=== PATIENT | male | born 2000 | race Caucasian/White ===

== ENCOUNTER 2023-11-27 18:33 | Emergency (ER) | payer MEDICAID, SELFPAY ==
[2023-11-27 18:34] VITALS: BP 151/86; PULSE 105; RESP 16; TEMP 36.4; O2SAT 100; BMI 21.7
--- NOTE | 2023-11-27 18:49 | CT_ITS ---
STUDY: CT ABDOMEN AND PELVIS WITH CONTRAST REASON FOR EXAM: Male, 23 years old. LLQ Pain RADIATION DOSAGE (If Supplied By Facility): CTDIvol = ( 9.88 ) mGy, DLP = ( 520.76 ) mGycm TECHNIQUE: Transaxial images were obtained from the dome of the diaphragm to the symphysis pubis without oral contrast. IV 100mL Isovue-370 was administered. Sagittal and coronal images were reconstructed. Individualized dose optimization techniques were used for this CT. COMPARISON: None. FINDINGS: The visualized lung bases are unremarkable. The visualized portions of the heart are within normal limits. Normal liver. Normal gallbladder and extrahepatic biliary system. Normal spleen. Normal pancreas. Normal bilateral adrenal glands. Normal right kidney. Normal left kidney. Normal visualized stomach. Normal small intestine. Borderline mild thickening of the wall through the descending and sigmoid colon, cannot exclude mild colitis. The appendix measures 6.5 mm with no focal inflammatory process seen. Normal abdominal aorta. Normal inferior vena cava. Normal retroperitoneum. Normal urinary bladder. Normal abdominal wall. Normal osseous structures. CT/Abdomen/Pelvis W IV Cont ONLY IMPRESSION: Cannot exclude mild colitis. No acute appendicitis or bowel obstruction. Normal abdominal viscera. Electronically Signed: Alessia De Los Santos MD at 19:53 EST ,
--- NOTE | 2023-11-27 18:49 | EX.ED.DYSGE1 ---
HPI History of Present Illness Chief Complaint: Abd Pain Informant: patient and family Narrative Narrative: 23-year-old male presenting to the emergency room with 24-hour history of left lower quadrant abdominal pain. Patient states that he had multiple stools today which is not really abnormal for him but seem darker than normal. He noticed a little bright red blood on the toilet paper. No nausea vomiting or fever. No urinary symptoms. He states the pain throughout the pulsatile seems to spread towards the back. He denies any history of Crohn's disease ulcerative colitis. No ureterolithiasis. No known trauma. He went to urgent care and was sent to the emergency department. [facility] Medical History no medical history no medical history Home Medications amoxicillin 875 mg-potassium clavulanate 125 mg tablet 875 mg (0.875 x 875-125 mg) PO Q12H #14 TABLETS 11/27/23 [Rx Last Taken Unknown] oxycodone-acetaminophen 5 mg-325 mg tablet 1 tab PO Q6H PRN PRN Pain 3 days #12 TABLETS 11/27/23 [Rx Last Taken Unknown] Allergy/AdvReac Type Severity Reaction Status Date / Time prednisone Allergy Mild Itching Verified 11/27/23 18:36 Surgical History no surgical history no surgical history Social History Smoking Status: Never smoker ROS ROS ED Constitutional Constitutional ED: Denies chills, fever(s) or weight loss Eyes Eyes: Denies change in vision or diplopia ENT ENT ED: Denies ear pain, rhinorrhea or sore throat Cardiovascular Cardiovascular: Denies chest pain, orthopnea, palpitations or racing heartbeat Respiratory/Chest Respiratory/Chest: Denies cough, dyspnea or orthopnea Gastrointestinal Gastrointestinal: Reports abdominal pain, diarrhea and other Details: BRBPR ; Denies nausea or vomiting Genitourinary Genitourinary ED: Denies dysuria, hematuria or urinary frequency Musculoskeletal Musculoskeletal: Denies arthralgias, myalgias or neck pain Integumentary Denies abscess or rash Neurologic Neurologic: Denies headache(s) or weakness Psychiatric Psychiatric: Denies anxiety, depression, suicidal ideation or suicidal thoughts Endocrine Endocrinology: Denies polydipsia, polyphagia or polyuria Allergic/Immunologic Allergic/Immunologic ED: Denies mouth swelling, tongue swelling or urticaria EXAM Physical Exam Const Vital Signs: 11/27/23 18:34 Temperature 97.5 F L Temperature Source Temporal Pulse Rate 105 H Respiratory Rate 16 Blood Pressure 151/86 H Blood Pressure Mean 107 Pulse Ox 100 Oxygen Delivery Method Room Air Positive well nourished and well developed General Appearance ED: well developed HEENT Reports normocephalic, head/scalp atraumatic and moist mucous membranes Eyes PERRL and EOMs intact bilaterally Neck no lymphadenopathy, supple and no JVD Resp normal respiratory effort and clear to auscultation bilaterally Cardio regular rate, regular rhythm and no murmurs GI Inspection: Negative for abdominal distention Auscultation: normoactive bowel sounds Palpation: soft and tender LLQ; Negative for guarding or rebound tenderness present Back/Spine no CVA tenderness and normal ROM Extremity normal to inspection General Extremety ED: Negative for edema General Extremity: Negative for edema Neuro oriented x3 and CN's II-XII intact bilaterally Sensorium / Orientation: alert Motor Exam: strength 5/5 throughout Psych mental status grossly normal Mood & Affect: Negative for depressed or tearful Skin no rashes or lesions noted and no wounds MDM MDM MDM Narrative Medical decision making narrative: Basic blood work showed a white count 7.5 hemoglobin 16.5. CMP essentially negative. Urinalysis negative. CT abdomen pelvis demonstrates some possible thickening of the rectosigmoid colon. This would certainly be in keeping with his symptoms with some blood pain. There is someone in his family with Crohn's disease. He has never had anything like this before. I do not think adding rectal contrast tonight is going to be of great significance. I will treat him with antibiotics in the form of Augmentin and pain medication. He was advised on return symptoms. He was advised that he should establish GI coverage and would recommend a follow-up colonoscopy. He was also advised that it may be a while before he can get into see a rail project engineer. We talked about establishing primary care and possibly seeing a surgeon for the colonoscopy. He states that he will make phone calls and see about follow-up. History & Record Review Discussion w/independent historian: Patient, Family and Significant other Additional record(s) reviewed:: Prior outpatient record Lab Data Attestation: I reviewed the patient's lab results. Labs: Laboratory Results - last 24 hr 11/27/23 19:10 WBC 7.5 RBC 5.24 Hgb 16.5 Hct 45.6 MCV 87.0 MCH 31.5 MCHC 36.2 H RDW Std Deviation 38.2 RDW Coeff of Kamlesh 12.0 Plt Count 282 MPV 10.1 Immature Gran % (Auto) 0.300 Neut % (Auto) 75.8 H Lymph % (Auto) 15.6 L Schley % (Auto) 6.8 Eos % (Auto) 1.1 Baso % (Auto) 0.4 Absolute Neuts (auto) 5.7 Absolute Lymphs (auto) 1.17 Nucleated RBC % 0 Sodium 140 Potassium 3.6 Chloride 106 Carbon Dioxide 22.0 Anion Gap 12 BUN 13 Creatinine 0.94 Estim Creat Clear Calc 124.39 Est GFR (MDRD) Af Amer 126 Est GFR (MDRD) Non-Af 104 BUN/Creatinine Ratio 13.8 Glucose 101 Calcium 9.8 Total Bilirubin 0.90 AST 45 H ALT 21 Alkaline Phosphatase 54 Total Protein 8.6 H Albumin 4.9 Globulin 3.7 Albumin/Globulin Ratio 1.3 Urine Color Yellow Urine Clarity Clear Urine pH 8.0 Ur Specific [place] 1.015 Urine Protein Negative Urine Glucose (UA) Normal Urine Ketones 15 H Urine Occult Blood Negative Urine Nitrite Negative Urine Bilirubin Negative Urine Urobilinogen Normal Ur Leukocyte Esterase Negative Urine RBC 0 SEEN Urine WBC 0 SEEN Ur Squamous Epith Cells 0 SEEN Urine Bacteria 0 SEEN Urine Mucus 0 SEEN Radiography Diagnostic Testing: Clinical Impression(s) from Imaging Studies Abdomen/Pelvis CT 11/27/23 18:49 IMPRESSION: Cannot exclude mild colitis. No acute appendicitis or bowel obstruction. Normal abdominal viscera. Electronically Signed: Alessia De Los Santos MD at 19:53 EST , Discharge Plan Triage Chief Complaint: Abd Pain ED Provider: Bubba Bingham Dx/Rx/DC Orders Clinical Impression: Colitis, Abdominal pain Instructions: ED Understanding Colitis Prescriptions: New oxycodone-acetaminophen [oxycodone-acetaminophen] 5-325 mg tablet 1 tab PO Q6H PRN PRN (Reason: Pain) 3 Days Qty: 12 0RF amoxicillin-pot clavulanate [amoxicillin-pot clavulanate] 875-125 mg tablet 875 mg PO Q12H Qty: 14 0RF Primary Care Provider: Care Physician,No Primary Referrals: Friend,Leo, DO [Med Staff - Active Staff] - As soon as possible (For gastroenterology evaluation) Care Physician,No Primary [Primary Care Provider] - Disposition Disposition: Home, Self Care
[2023-11-27] MEDS: Ketorolac 30 MG/ML Syringe IV (19:13)
[2023-11-27] MEDS: 0.9% Normal Saline (1000mL) 1,000 ML 1000 ML IV (19:13)
[2023-11-27 19:16] LABS: Bacteria 0 SEEN /hpf (None Seen); Mucous, Urine 0 SEEN /hpf (<or=2+); Red Blood Cells-Urine 0 SEEN /hpf (0-5); Squamous Epithelial Cells - UA 0 SEEN /hpf (0-5); White Blood Cells 0 SEEN /hpf (0-5)
[2023-11-27 19:19] LABS: Color, Urine Yellow (Yellow); Glucose, Dipstick Normal (Normal); Ketone-Dipstick 15 mg/dl (Negative); Leukocyte Esterase-Dipstick Negative /ul (Negative); Nitrite-Dipstick Negative (Negative); Occult Blood-Urine Negative /ul (Negative); Protein-Dipstick Negative (Negative); Specific Gravity, Urine 1.015 (1.002-1.030); Urine Bilirubin Dipstick Negative (Negative); Urine Clarity Clear (Clear); Urine Urobilinogen Normal (Normal)
[2023-11-27 19:20] LABS: Absolute Lymphocyte Count 1.17 X10^3/uL (0.83-4.51); Absolute Neutrophil Count 5.7 X10^3/uL (2.0-7.7); Basophil# 0.03 X10^3/uL; Basophil% 0.4 % (0-1); Eosinophil# 0.08 X10^3/uL; Eosinophils% 1.1 % (0-5); Hematocrit 45.6 % (40-54); Hemoglobin 16.5 g/dL (13.0-16.5); Lymphocyte # 1.17 X10^3/ul (0.83-4.51); Lymphocyte % 15.6 % (19-41); Mean Corp Hgb Conc 36.2 g/dL (32-36); Mean Corpuscular Hgb 31.5 pg (27.0-32.0); Mean Platelet Vol. 10.1 fl (6.2-12.0); Monocyte# 0.51 X10^3/uL; Monocyte% 6.8 % (0-10); NRBC Flagged by Analyzer 0 % (0-5); Neutrophil # 5.71 X10^3/uL (2.7-7.7); Neutrophil % 75.8 % (47-70); Platelet Count 282 K/mm3 (150-450); RBC Distribution Width SD 38.2 fl (35.1-43.9); Red Blood Count 5.24 M/mm3 (4.6-6.2); White Blood Count 7.5 K/mm3 (4.4-11.0)
[2023-11-27 19:35] LABS: ALB/GLOB Ratio 1.3 RATIO (0.9-2.4); AST(SGOT) 45 U/L (15-37); Alanine Aminotransfer ALT/SGPT 21 U/L (16-61); Albumin, Serum 4.9 g/dL (3.2-5.0); Alkaline Phosphatase 54 U/L (45-117); Anion Gap 12 (5-15); BUN 13 mg/dL (7-18); BUN/Creat Ratio 13.8 RATIO (10-20); Calcium,Total 9.8 mg/dL (8.5-10.1); Chloride 106 mmol/L (98-107); Creatinine, Serum 0.94 mg/dL (0.70-1.30); EST Glomerular Filtration Rate 104 mL/min (>60); Est Glom Filt Rate - Afr Amer 126 mL/min (>60); Estimated Creatinine Clearance 124.39 ml/min; Globulin 3.7 g/dL (2.2-4.2); Glucose 101 mg/dL (74-106); Potassium 3.6 mmol/L (3.5-5.1); Protein, Total 8.6 g/dL (6.4-8.2); Sodium Level 140 mmol/L (136-145)
--- OUTSIDE RECORDS SUMMARY | 2023-11-27 19:47 | XMS RPT_ITS | CCD ---
Author Name Unknown Address [address] [place] [address] Organization [facility] Care Team Providers Care Ciaio Counter Molder Name Role Phone Claudine Roger MD Primary Care Provider [phone] Allergies Allergy Classification Reported Allergen(s) Allergy Type Date of Onset Reaction(s) Facility (2 sources) predniSONE; Translations: [PREDNISONE] Drug Allergy 06-12-2012 Itching [facility] Work Phone: Medications Completed/Discontinued Medications Medication Drug Class(es) Dates Sig (Normalized) Sig (Original) [id number] actuat albuterol 0.09 mg/actuat metered dose inhaler (1 source) beta2-Adrenergic Agonist Start: 09-13-2023 take 2 puff(s) by inhalation every four hours as needed albuterol HFA (PROAIR HFA) 90 mcg/actuation inhaler Inhale 2 Puffs as instructed every 4 hours as needed. 18 g 0 09/13/2023 Active Problems Problem Classification Problem Date Documented Da te Episodic/Chronic Asthma (1 source) Asthma; Translations: [Unspecified asthma, uncomplicated] Onset: 09-03-2011 11-09-2021 Chronic Other lower respiratory disease (1 source) Wheezing; Translations: [Wheezing] 09-13-2023 Episodic Other upper respiratory infections (1 source) Upper respiratory infection; Translations: [Acute upper respiratory infection, unspecified] 09-13-2023 Episodic Results Test Name Value Interpretation Reference Range Facil ity Vital Signs Date Time Vital Sign Value Performing Clinician Michael bazzi 09-13-2023 17:27-0400 Body temperature 98.29 [degF] Doris Perry APRN.R&D ENGINEER Work Phone: [facility] 09-13-2023 17:27-0400 Body weight 72.3 kg Doris Perry APRN.R&D ENGINEER Work Phone: [facility] 09-13-2023 17:27-0400 Diastolic blood pressure 82 mm[Hg] Doris Perry APRN.ESTEFANÍA Work Phone: [facility] 09-13-2023 17:27-0400 Heart rate 94 /min Doris Perry APRN.R&D ENGINEER Work Phone: [facility] 09-13-2023 17:27-0400 Respiratory rate 16 /min Doris Perry APRN.R&D ENGINEER Work Phone: [facility] 09-13-2023 17:27-0400 SaO2% (BldA) [Mass fraction] 96 % Doris Perry APRN.ESTEFANÍA Work Phone: [facility] 09-13-2023 17:27-0400 Systolic blood pressure 132 mm[Hg] Doris Perry APRN.ESTEFANÍA Work Phone: [facility] Encounters Encounter Date Encounter Type Care Provider Facility Start: 09-13-2023 End: 09-13-2023 ambulatory CLAUDINE ROGER Facility:[facility] Start: 09-13-2023 End: 09-13-2023 Patient encounter procedure Doris Perry APRN.CNP Work Phone: [facility] Plan of Treatment Date Care Activity Detail Author Start: 11-14-2022 Depression Assessment Depression Ass essment [facility] Start: 06-28-2022 Urine microalbumin profile DTa P,Tdap,Td Vaccine (7 - Td or Tdap) [facility] Start: 09-28-2019 Annual PCP Team Facility Engineer jonathan Disease Visit Annual PCP Team Chronic Disease Visit [facility] Start: 2017 Hepatitis C Screening Hepatitis C Sc zehra [facility] Start: 2017 HIV Screening HIV Screening [facility] Start: 2017 Spirometry Spirometry [facility] Start: 2015 Meningococcal B Vacc ine: Consider Based On Risk (1 of 2 - Patient Seeks Protection) Meningococcal B Vaccine: Consider Based On Risk (1 of 2 - Patient Seeks Protection) [facility] Start: 2013 Peds To Adult Transi tion Annual Assessment Peds To Adult Transition Annual Assessment [facility] Start: 2011 Peds To Adult Transi tion Initial Discussion Peds To Adult Transition Initial Discussion [facility] Start: 2008 HPV Vaccine (1 - Mal e 2-dose series) HPV Vaccine (1 - Male 2-dose series) [facility] Start: 2005 Pneumococcal vaccination Pneum ococcal Vaccine (1 - PCV) [facility] Start: 03-18-2000 Covid-19 Vaccine (#1) Covid-19 Vacci ne (#1) [facility] Immunizations Immunization Date Immunization Notes Care Provider Fa anabellty 06-15-2005 diphtheria, tetanus toxoids and acellular pertussis vaccine Dorisbeena Riverak [employer] INTERPRETIVE [employer]IST.[facility] Work Phone: [facility] Work Phone: 06-15-2005 measles, mumps and rubella virus vaccine Doris Vicky [employer] INTER[employer]TIVE SPECIALIST.[facility] Work Phone: [facility] Work Phone: 08-17-2004 influenza virus vaccine, unspecified formulation Dorisbeena Riverak [employer] INTERPRETIVE SPECIALIST.[facility] Work Phone: [facility] Work Phone: 04-25-2001 diphtheria, tetanus toxoids and acellular pertussis vaccine Doris Vicky [employer] INTERPRETIVE SPECIALIST.[facility] Work Phone: [facility] Work Phone: 04-25-2001 haemophilus influenz ae type b vaccine, HbOC conjugate Doris Vicky [employer] INTERPRETIVE SPECIALIST.[facility] Work Phone: [facility] Work Phone: 04-25-2001 hepatitis B vaccine, pediatric or pediatric/adolescent dosage Doris Vicky [employer] INTERPRETIVE SPECIALIST.[facility] Work Phone: [facility] Work Phone: 04-25-2001 poliovirus vaccine, inactivated Doris Vicky [employer] INTERPRETIVE SPECIALIST.[facility] Work Phone: [facility] Work Phone: 12-15-2000 measles, mumps and rubella virus vaccine Doris Vicky [employer] INTERPRETIVE SPECIALIST.[facility] Work Phone: [facility] Work Phone: 12-15-2000 poliovirus vaccine, inactivated Doris Vicky [employer] INTERPRETIVE SPECIALIST.R&D ENGINEER Work Phone: [facility] Work Phone: 12-15-2000 varicella virus vaccine Shan a Vicky [employer] INTERPRETIVE SPECIALIST.R&D ENGINEER Work Phone: [facility] Work Phone: 07-28-2000 hepatitis B vaccine, pediatric or pediatric/adolescent dosage Doris Vicky [employer] INTERPRETIVE SPECIALIST.R&D ENGINEER Work Phone: [facility] Work Phone: 03-25-2000 diphtheria, tetanus toxoids and acellular pertussis vaccine Doris Vicky [employer] INTERPRETIVE SPECIALIST.[facility] Work Phone: [facility] Work Phone: 03-25-2000 haemophilus influenz ae type b vaccine, HbOC conjugate Doris Vicky [employer] INTERPRETIVE SPECIALIST.[facility] Work Phone: [facility] Work Phone: 03-25-2000 hepatitis B vaccine, pediatric or pediatric/adolescent dosage Doris Vicky [employer] INTERPRETIVE SPECIALIST.R&D ENGINEER Work Phone: [facility] Work Phone: 02-03-2000 diphtheria, tetanus toxoids and acellular pertussis vaccine Doris Vicky [employer] INTERPRETIVE SPECIALIST.R&D ENGINEER Work Phone: [facility] Work Phone: 02-03-2000 haemophilus influenz ae type b vaccine, HbOC conjugate Doris Vicky [employer] INTERPRETIVE SPECIALIST.R&D ENGINEER Work Phone: [facility] Work Phone: 02-03-2000 poliovirus vaccine, inactivated Doris Vicky [employer] INTERPRETIVE SPECIALIST.R&D ENGINEER Work Phone: [facility] Work Phone: 1999 diphtheria, tetanus toxoids and acellular pertussis vaccine Doris Vicky P[employer] INTERPRETIVE SPECIALIST.R&D ENGINEER Work Phone: [facility] Work Phone: 1999 haemophilus influenz ae type b vaccine, HbOC conjugate Doris Vicky P[employer] INTERPRETIVE SPECIALIST.R&D ENGINEER Work Phone: [facility] Work Phone: 1999 poliovirus vaccine, inactivated Doris Perry APRN.R&D ENGINEER Work Phone: [facility] Work Phone: Payers Date Payer Category Payer Medicaid ANTHEM MEDICAID [employer] [place]ICA[place] [id number] 2022-Present [phone] [address] [place] [address] Medicaid [id number] 2022 Medicaid [id number] Social History Date Type Detail Facility [facility]: 07[facility]27-2011 [facility] Start: 07-27-2011 Tobacco use and exposure Smoke less tobacco non-user [facility] Start: 09-13-2023 Alcohol intake Not Asked [facility] Start: 10-22-2020 End: 09-13-2023 History of Social function [facility]on[facility] Start: 10-22-2020 End: 09-13-2023 Tobacco use panel [facility] Adult Depression Scr eening Assessment 0 [facility] Start: 1999 Sex Assigned At Not on file [facility] Progress note 09-13-2023 Note Date & Type Note Facility 09-13-2023 Note HNO ID: [id number] Author: Doris Perry APRN.R&D ENGINEER Service: ? Author Type: Nurse Practitioner Type: Progress Notes Filed: 09/13/2023 5:49 PM Note Text: Subjective The history is provided by the patient. No slab lifting supervisor was used. HPI Umesh Kessler is a 22 year old male who presents today for CC of cough, congestion, and wheezing for one day. He denies any known exposure to covid and declines testing today. He has used Robitussin with short term relief. BP 132/82 Pulse 94 Temp 36.8 ?C (98.3 ?F) Resp 16 Wt 72.3 kg (159 lb 6.4 oz) SpO2 96% BMI 22.08 kg/m? Social History Tobacco Use Smoking status: Never Smokeless tobacco: Never PAST MEDICAL HISTORY Diagnosis Date Asthma Asthma 09/03/2011 Mild intermittent Trigger= resp infections PMH - PAST MEDICAL HISTORY OF Color Vision - Normal I have confirmed and edited as necessary, the [facility] Review of Systems Constitutional: Negative for chills, fever and malaise/fatigue. HENT: Positive for congestion, ear pain and sinus pain. Negative for sore throat. Respiratory: Positive for cough. Negative for sputum production, shortness of breath and wheezing. Cardiovascular: Negative for chest pain. Gastrointestinal: Negative for abdominal pain, diarrhea, nausea and vomiting. Musculoskeletal: Negative for myalgias. Neurological: Negative for headaches. Objective Physical Exam Vitals and nursing note reviewed. Constitutional: Appearance: He is not toxic-appearing. HENT: Head: Normocephalic and atraumatic. Right Ear: Tympanic membrane, ear canal and external ear normal. Left Ear: Tympanic membrane, ear canal and external ear normal. Nose: Mucosal edema, congestion and rhinorrhea present. Right Sinus: Maxillary sinus tenderness and frontal sinus tenderness present. Left Sinus: Maxillary sinus tenderness and frontal sinus tenderness present. Mouth/Throat: Pharynx: Uvula midline. No oropharyngeal exudate or posterior oropharyngeal erythema. Tonsils: No tonsillar abscesses. Cardiovascular: Rate and Rhythm: Normal rate and regular rhythm. Heart sounds: Normal heart sounds. Pulmonary: Effort: Pulmonary effort is normal. Breath sounds: Examination of the right-middle field reveals wheezing. Examination of the left-middle field reveals wheezing. Examination of the right-lower field reveals wheezing. Examination of the left-lower field reveals wheezing. Wheezing present. No decreased breath sounds, rhonchi or rales. Lymphadenopathy: Head: Right side of head: No submental, submandibular, tonsillar or preauricular adenopathy. Left side of head: No submental, submandibular, tonsillar or preauricular adenopathy. Cervical: No cervical adenopathy. Right cervical: No superficial cervical adenopathy. Left cervical: No superficial cervical adenopathy. Neurological: Mental Status: He is alert. ASSESSMENT/PLAN: 1. URI with cough and congestion - ICD9: 465.9, ICD10: J06.9 (primary diagnosis) - Discussed viral etiology and rationale for treatment. - Symptomatic treatment with prn analgesia - Supportive care with fluids and rest - The patient may also use OTC cough and cold meds as needed. - Follow up in one week if symptoms persist or sooner if worsening of symptoms 2. Wheezing - ICD9: 786.07, ICD10: R06.2 Albuterol inhaler 2 puffs every 4-6 hours prn Diagnosis and treatment plan were discussed and questions were answered to the patient's satisfaction. Pt acknowledged understanding of concepts and follow up plan. Specific signs and symptoms that would indicate the need for higher level of care were discussed in detail warranting prompt ER evaluation. Doris Perry APRN.CNP [facility] Instructions 09-13-2023 Patient Instructions Note Date & Type Note Facility 09-13-2023 Instructions Doris Perry APRN.ESTEFANÍA - 09/13/2023 5:41 PM EDT Rest, increase water intake Motrin or Tylenol as needed for fever or pain. Salt water gargles, chloraseptic spray or lozenges as needed for sore throat. Warm beverages, honey. Nasal saline spray as needed Cool mist humidifier at night Albuterol inhaler 2 puffs every 4 -6 hours prn Mucinex DM A cold normally lasts 7-10 days. If your symptoms are lasting longer, develop fever, or worsening by that time instead of improving then return to clinic or follow up with PCP for re-evaluation. * Seek medical care immediately, call 911, go to ER if you have chest pain, difficulty breathing, shortness of breath, inability to swallow. documented in this encounter [facility] History of Present illness Narrative 09-13-2023 Doris Perry APRN.ESTEFANÍA - 09/13/2023 5:30 PM EDT Note Date & Type Note Facility 09-13-2023 History of Presen t illness Narrative Subjective The history is provided by the patient. No slab lifting supervisor was used. HPI Umesh Kessler is a 22 year old male who presents today for CC of cough, congestion, and wheezing for one day. He denies any known exposure to covid and declines testing today. He has used Robitussin with short term relief. BP 132/82 Pulse 94 Temp 36.8 C (98.3 F) Resp 16 Wt 72.3 kg (159 lb 6.4 oz) SpO2 96% BMI 22.08 kg/m Social History Tobacco Use Smoking status: Never Smokeless tobacco: Never PAST MEDICAL HISTORY Diagnosis Date Asthma Asthma 09/03/2011 Mild intermittent Trigger= resp infections PMH - PAST MEDICAL HISTORY OF [employer] - Normal I have confirmed and edited as necessary, the [facility] Review of Systems Constitutional: Negative for chills, fever and malaise/fatigue. HENT: Positive for congestion, ear pain and sinus pain. Negative for sore throat. Respiratory: Positive for cough. Negative for sputum production, shortness of breath and wheezing. Cardiovascular: Negative for chest pain. Gastrointestinal: Negative for abdominal pain, diarrhea, nausea and vomiting. Musculoskeletal: Negative for myalgias. Neurological: Negative for headaches. Objective Physical Exam Vitals and nursing note reviewed. Constitutional: Appearance: He is not toxic-appearing. HENT: Head: Normocephalic and atraumatic. Right Ear: Tympanic membrane, ear canal and external ear normal. Left Ear: Tympanic membrane, ear canal and external ear normal. Nose: Mucosal edema, congestion and rhinorrhea present. Right Sinus: Maxillary sinus tenderness and frontal sinus tenderness present. Left Sinus: Maxillary sinus tenderness and frontal sinus tenderness present. Mouth/Throat: Pharynx: Uvula midline. No oropharyngeal exudate or posterior oropharyngeal erythema. Tonsils: No tonsillar abscesses. Cardiovascular: Rate and Rhythm: Normal rate and regular rhythm. Heart sounds: Normal heart sounds. Pulmonary: Effort: Pulmonary effort is normal. Breath sounds: Examination of the right-middle field reveals wheezing. Examination of the left-middle field reveals wheezing. Examination of the right-lower field reveals wheezing. Examination of the left-lower field reveals wheezing. Wheezing present. No decreased breath sounds, rhonchi or rales. Lymphadenopathy: Head: Right side of head: No submental, submandibular, tonsillar or preauricular adenopathy. Left side of head: No submental, submandibular, tonsillar or preauricular adenopathy. Cervical: No cervical adenopathy. Right cervical: No superficial cervical adenopathy. Left cervical: No superficial cervical adenopathy. Neurological: Mental Status: He is alert. ASSESSMENT/PLAN: 1. URI with cough and congestion - ICD9: 465.9, ICD10: J06.9 (primary diagnosis) - Discussed viral etiology and rationale for treatment. - Symptomatic treatment with prn analgesia - Supportive care with fluids and rest - The patient may also use OTC cough and cold meds as needed. - Follow up in one week if symptoms persist or sooner if worsening of symptoms 2. Wheezing - ICD9: 786.07, ICD10: R06.2 Albuterol inhaler 2 puffs every 4-6 hours prn Diagnosis and treatment plan were discussed and questions were answered to the patient's satisfaction. Pt acknowledged understanding of concepts and follow up plan. Specific signs and symptoms that would indicate the need for higher level of care were discussed in detail warranting prompt ER evaluation. Doris Perry APRN.ESTEFANÍA documented in this encounter [facility] Evaluation note Note Date & Type Note Facility documented in this encounter [facility] Summary Purpose Family History No Family History Records Found Advance Directives No Advanced Directives Records Found Additional Source Comments Source Comments (unrecognize d section and content) In the event this informatio n is protected by the Federal Confidentiality of Alcohol and Drug Abuse Patient Records regulations: The Federal rules restrict any use of the information to criminally investigate or prosecute any alcohol or drug abuse patient.[facility] Reason for Visit (unrecogniz ed section and content) Care Teams (unrecognized sec tion and content) (unrecognized sect ion and content) No Status Records Found INFORMATION SOURCE (unrecogn ized section and content) FOR RECORDS PERTAINING TO PATIENTS WHO ARE OR HAVE BEEN ENROLLED IN A CHEMICAL DEPENDENCY/SUBSTANCEABUSE PROGRAM, SOME INFORMATION MAY BE OMITTED. This clinical summary was aggregated from multiple sources. Caution should be exercised in using it in the provision of clinical care. This summary normalizes information from multiple sources, and as a consequence, information in this document may materially change the coding, format and clinical context of patient data. In addition, data may be omitted in some cases. CLINICAL DECISIONS SHOULD BE BASED ON THE PRIMARY CLINICAL RECORDS. [facility]. provides no warranty or guarantee of the accuracy or completeness of information in this document.
[2023-11-27 20:35] VITALS: BP 120/75; PULSE 67; RESP 14; O2SAT 99
== END 2023-11-27 20:36 | disposition home or self-care (01) ==
PROVIDERS: Emergency Provider Emergency Medicine; Visit Provider Emergency Medicine
DX: K52.9 Noninfective gastroenteritis and colitis, unspecified (principal); R10.32 Left lower quadrant pain
CPT/HCPCS: 74177; 80053; 81001; 85025; 96374; 99283; J7030; Q9967; A4216